=== PATIENT | female | born 1955 | race African-American/Black ===

== ENCOUNTER 2016-08-04 19:33 | Emergency (ER) | payer OTHER ==
[~2016-08-04 19:33] MED LIST: ALBU6.7H INH; BP MED; PRED50TA PO; ZITH250T PO
[2016-08-04 19:35] VITALS: BP 187/81; PULSE 88; RESP 16; TEMP 98.6; O2SAT 96
--- NOTE | 2016-08-04 20:05 | PD ---
Physical Exam Date Seen by Provider: Aug 04, 2016 Time Seen by Provider: 20:03 Data Data Last Documented VS Vital Signs Date Time Temp Pulse Resp B/P Pulse Ox O2 Delivery O2 Flow Rate FiO2 08/04/16 19:35 98.6 88 16 187/81 96 Room Air [facility] Supervised Visit with YESENIA: No Narrative Course 61 Yo F with complaint of elevated blood pressure, sinus pain, lightheadedness x 3 days. Vitals reviewed. Awaiting bed placement. Mer Morrison Aug 04, 2016 20:05
[2016-08-04 21:38] VITALS: BP 148/77; PULSE 78; RESP 20; O2SAT 97
[2016-08-04] MEDS ORDERED: HYDR12.57 PO (21:42)
[2016-08-04] MEDS ORDERED: VENTAER INH (21:42)
[2016-08-04] MEDS ORDERED: AUGM875T3 PO (21:53)
--- NOTE | 2016-08-04 21:53 | PD ---
HPI Chief Complaint: Cold / Flu Symptoms Time Seen by Provider: 21:35 Travel History International Travel<30 days: No Contact w/Intl Traveler<30days: No Traveled to known affect area: No PFSH Past Medical History Diminished Hearing: No GERD: Yes Hypertension: Yes Respiratory: Yes Menopausal: Yes Past Surgical History Surgical History: No Previous Surgery Social History Alcohol Use: Yes (SELDOM) Tobacco Use: No Substance Use: No Allergies-Medications (Allergen,Severity, Reaction): Coded Allergies: No Known Allergies (Verified , 04/11/10) Reported Meds & Prescriptions Reported Meds & Active Scripts Active Augmentin (Amoxicillin-Clavulanate) 875-125 Mg Tab 1 Tab PO BID 10 Days Reported Hydrochlorothiazide 12.5 Mg Cap 12.5 Mg PO DAILY Ventolin Hfa 18 GM Inh (Albuterol Sulfate) 90 Mcg/Act Aer 2 Puff INH Q4-6H PRN Data Data Last Documented VS Vital Signs Date Time Temp Pulse Resp B/P Pulse Ox O2 Delivery O2 Flow Rate FiO2 08/04/16 21:38 78 20 148/77 97 Room Air 08/04/16 19:35 98.6 Orders Amoxicil-Clavulanate (Augmentin) (08/04/16 22:00) MDM Diagnosis Primary Impression: Sinusitis Qualified Code: J01.11 - Acute recurrent frontal sinusitis Med/Other Pt SpecificInfo: Prescription(s) given Scripts Amoxicillin-Clavulanate (Augmentin)875-125 Mg Tab1 Tab PO BID 10 Days Ref 0 Prov:Everett Godoy MD 08/04/16 Everett Godoy MD Aug 04, 2016 21:53
[2016-08-04] MEDS ORDERED: AMOXICILLIN/CLAVULANATE K 875 MG TAB PO ONE (22:00)
--- NOTE | 2016-08-05 07:29 | PD ---
HPI Chief Complaint: Cold / Flu Symptoms Time Seen by Provider: 21:35 Travel History International Travel<30 days: No Contact w/Intl Traveler<30days: No Traveled to known affect area: No History of Present Illness HPI Patient 61-year-old female presents emergency Department with "I think I have sinus infection". Patient states that she's been having some pain in the maxillary sinuses over the past few days. She does take CPAP at home for sleep apnea. She states that her brother told her that she might be dirty and she just bought a cleaning device for her machine. She denies any fever denies any chest pain shortness breath or abdominal pain. She does endorse some cough and congestion. Symptoms are moderate. Gradually worsening. PFSH Past Medical History Diminished Hearing: No GERD: Yes Hypertension: Yes Respiratory: Yes Menopausal: Yes Past Surgical History Surgical History: No Previous Surgery Social History Alcohol Use: Yes (SELDOM) Tobacco Use: No Substance Use: No Allergies-Medications (Allergen,Severity, Reaction): Coded Allergies: No Known Allergies (Verified , 04/11/10) Reported Meds & Prescriptions Reported Meds & Active Scripts Active Augmentin (Amoxicillin-Clavulanate) 875-125 Mg Tab 1 Tab PO BID 10 Days Reported Hydrochlorothiazide 12.5 Mg Cap 12.5 Mg PO DAILY Ventolin Hfa 18 GM Inh (Albuterol Sulfate) 90 Mcg/Act Aer 2 Puff INH Q4-6H PRN Review of Systems Except as stated in HPI: all other systems reviewed are Neg Physical Exam Narrative GENERAL: Well-developed well-nourished no apparent distress SKIN: Focused skin assessment warm/dry. HEAD: Atraumatic. Normocephalic. EYES: Pupils equal and round. No scleral icterus. No injection or drainage. ENT: No nasal bleeding or discharge. Mucous membranes pink and moist. TMs clear bilaterally NECK: Trachea midline. No JVD. No lymphadenopathy CARDIOVASCULAR: Regular rate and rhythm. No murmur appreciated. RESPIRATORY: No accessory muscle use. Clear to auscultation. Breath sounds equal bilaterally. GASTROINTESTINAL: Abdomen soft, non-tender, nondistended. Hepatic and splenic margins not palpable. MUSCULOSKELETAL: No obvious deformities. No clubbing. No cyanosis. No edema. Data Data Last Documented VS Vital Signs Date Time Temp Pulse Resp B/P Pulse Ox O2 Delivery O2 Flow Rate FiO2 08/04/16 21:38 78 20 148/77 97 Room Air 08/04/16 19:35 98.6 Orders Amoxicil-Clavulanate (Augmentin) (08/04/16 22:00) [facility] Medical Decision Making Medical Screen Exam Complete: Yes Emergency Medical Condition: Yes Differential Diagnosis Elevated blood pressure, sinusitis, URI, pneumonia unlikely. Hypertensive emergency excluded clinically. Narrative Course Patient 61-year-old female presents emergency Department with sinusitis symptoms. She has had recurrent sinusitis in the past and would benefit from extended spectrum penicillin such as Augmentin. Patient does have elevated blood pressure here but on review systems she has not had any chest pain shortness of breath decreased urination headaches or focalized weakness. There is no indication to worker the pressure up further at this time. Discussed that she needs follow-up with her primary care physician and return to ED criteria. Diagnosis Primary Impression: Sinusitis Qualified Code: J01.11 - Acute recurrent frontal sinusitis Patient Instructions: General Instructions, Sinusitis (ED) Departure Forms: Tests/Procedures Scripts Amoxicillin-Clavulanate (Augmentin)875-125 Mg Tab1 Tab PO BID 10 Days Ref 0 Prov:Everett Godoy MD 08/04/16 Disposition: 01 DISCHARGE HOME Condition: Stable Everett Godoy MD Aug 05, 2016 07:29
== END 2016-08-04 22:34 | disposition home or self-care (01) ==
LOC: NEPC 19:33
DX: J01.11 Acute recurrent frontal sinusitis (principal)
CPT/HCPCS: 99283

== ENCOUNTER 2017-01-15 12:37 | Emergency (ER) | payer OTHER ==
[~2017-01-15] VITALS: Ht 162.6 cm; Wt 118.0 kg
[~2017-01-15 12:37] MED LIST changes: -ALBU6.7H INH; +AUGM875T3 PO; -BP MED; +HYDR12.57 PO; -PRED50TA PO; +VENTAER INH; -ZITH250T PO
[2017-01-15 12:40] VITALS: BP 151/86; PULSE 83; RESP 16; TEMP 97.9; O2SAT 96
[2017-01-15] MEDS ORDERED: AUGM875T3 PO (13:05)
--- NOTE | 2017-01-15 13:05 | PD ---
HPI Chief Complaint: ENT Complaint Time Seen by Provider: 12:59 Travel History International Travel<30 days: No Contact w/Intl Traveler<30days: No Traveled to known affect area: No History of Present Illness HPI 61-year-old female here with sinus pain and pressure and reported fever. Symptom onset 7 days. She reports history of frequent sinus infections with similar symptoms in the past. Symptoms severity moderate. No alleviating factors. PFSH Past Medical History Diminished Hearing: No GERD: Yes Hypertension: Yes Respiratory: Yes Menopausal: Yes Social History Alcohol Use: Yes (SELDOM) Tobacco Use: No Substance Use: No Allergies-Medications (Allergen,Severity, Reaction): Coded Allergies: No Known Allergies (Verified Adverse Reaction, Unknown, 01/15/17) Reported Meds & Prescriptions Reported Meds & Active Scripts Active Augmentin (Amoxicillin-Clavulanate) 875-125 Mg Tab 1 Tab PO BID Augmentin (Amoxicillin-Clavulanate) 875-125 Mg Tab 1 Tab PO BID 10 Days Reported Hydrochlorothiazide 12.5 Mg Cap 12.5 Mg PO DAILY Ventolin Hfa 18 GM Inh (Albuterol Sulfate) 90 Mcg/Act Aer 2 Puff INH Q4-6H PRN Review of Systems Except as stated in HPI: all other systems reviewed are Neg General / Constitutional: Positive: Fever HENT: Positive: Congestion Physical Exam Narrative GENERAL: Well-nourished, well-developed patient. HEAD: Atraumatic. Normocephalic. EYES: PERRL, EOMI, no discharge or injection. No scleral icterus. EARS: Bilateral tympanic membranes without erythema, dullness or perforation. NOSE: + Tenderness to frontal and maxillary sinuses .Nasal turbinates appear normal without nasal blood, purulent drainage or septal hematoma. THROAT: Mucosa pink and moist. No erythema or exudates. No uvular edema. No uvular, palatal, or tonsillar deviation. Airway patent. CARDIOVASCULAR: Regular rate and rhythm without murmurs, gallops, or rubs. RESPIRATORY: Breath sounds equal bilaterally. No accessory muscle use. Data Data Last Documented VS Vital Signs Date Time Temp Pulse Resp B/P (MAP) Pulse Ox O2 Delivery O2 Flow Rate FiO2 01/15/17 12:40 97.9 83 16 151/86 (107) 96 MDM Medical Decision Making Medical Screen Exam Complete: Yes Emergency Medical Condition: Yes Differential Diagnosis Sinusitis, URI, allergic rhinitis Narrative Course 61-year-old female here with sinus pain and pressure and reported fever. She reports history of frequent sinus infections with similar symptoms in the past. On exam she has tenderness over the frontal and maxillary sinuses. Diagnosis Primary Impression: Sinusitis Qualified Codes: J32.9 - Chronic sinusitis, unspecified Referrals: [facility] Additional Instructions: Take the antibiotics as prescribed. Tylenol or Motrin as needed for pain. Use Flonase as directed. Follow up with her doctor. Scripts Amoxicillin-Clavulanate (Augmentin) 875-125 Mg Tab 1 TAB PO BID for Infection, #20 TAB 0 Refills Prov: Veena Morales 01/15/17 Disposition: 01 DISCHARGE HOME Condition: Stable Veena Morales Jan 15, 2017 13:05
== END 2017-01-15 13:15 | disposition home or self-care (01) ==
LOC: PHEFT 12:37
DX: J32.9 Chronic sinusitis, unspecified (principal)
CPT/HCPCS: 99283